=== PATIENT | male | born 1955 | race Caucasian/White ===

== ENCOUNTER 2022-05-10 09:18 | Emergency (ER) | payer OTHER ==
[~2022-05-10] VITALS: Ht 160 cm; Wt 101.2 kg
[2022-05-10 09:32] VITALS: BP 143/89
--- NOTE | 2022-05-10 09:48 | NUR ---
ASSUMED PATIENT CARE, NURSING ASSESSMENT COMPLETED.
[2022-05-10] MEDS: ASPIRIN 81 MG TAB.CHEW PO ONE (10:53)
[2022-05-10] MEDS ORDERED: NAPR-1704 PO (11:19)
[2022-05-10 11:27] VITALS: BP 135/81
== END 2022-05-10 11:28 | disposition home or self-care (01) ==
LOC: MED 09:18
DX: M72.2 Plantar fascial fibromatosis (principal); Z79.899 Other long term (current) drug therapy
CPT/HCPCS: 99283